=== PATIENT | male | born 1950 | race Two or more races ===

== ENCOUNTER 2018-07-10 10:57 | Emergency (ER) | payer OTHER ==
[~2018-07-10] VITALS: Ht 188 cm; Wt 86.2 kg
[2018-07-10] MEDS ORDERED: AMOX-CLAV 875-1 EACH PO (12:32)
== END 2018-07-10 13:36 | disposition home or self-care (01) ==
LOC: ER 10:57
DX: S61.012A Laceration without foreign body of left thumb without damage to nail, initial encounter (principal); W45.8XXA Other foreign body or object entering through skin, initial encounter; Y93.89 Activity, other specified; Y92.89 Other specified places as the place of occurrence of the external cause; Y99.8 Other external cause status